=== PATIENT | female | born 1935 | race Caucasian/White ===

== ENCOUNTER 2017-02-02 14:02 | Day surgery (SDC) | payer OTHER ==
[~2017-02-02] VITALS: Ht 162.6 cm; Wt 83.0 kg
[~2017-02-02 14:02] MED LIST: ADULT LOW DOSE81 M1 PO; ALBUTEROL17 GM IH; ALEVE220 M2 PO; ALTACE1.25 MG PO; ALTACE10 MG PO; AMIODARONE HCL200 MG PO; AMITRIPTYLINE H50 MG PO; ASACOL400 MG PO; ASCORBIC ACID500 M1 PO; ASCORBIC ACID500 M3 PO; Altace PO; Ascorbic Acid,Ester- PO; B-100 COMPLEX1 EACH PO; B-12 IM; B-COMPLEX-VITA1 EACH PO; BUMEX1 MG PO; CARDIZEM CD,CA120 MG PO; CARDIZEM CD120 MG PO; CARDIZEM CD240 MG PO; CELEBREX200 MG PO; CENTRUM SILV1 TABLE1 PO; CIPRO250 MG PO; CIPROFLOXACIN250 MG PO; COLACE100 MG PO; COUMADIN,JANTOVE6 MG PO; CRESTOR40 MG PO; CYANOCOBAL1000 MCG/2 IM; Cardizem CD,Cartia X PO; Colace PO; DIASENSE MAGNE400 MG PO; DILTIAZEM 24HR240 MG PO; DITROPAN XL5 MG PO; DITROPAN5 MG PO; Ditropan PO; Ecotrin PO; Elavil PO; FERGON324 MG PO; FERROUS SULFAT325 MG PO; FOLIC ACID PO; FOLIC ACID0.4 MG PO; FOLIC ACID1 MG PO; FORTAMET500 M1 PO; FUROSEMIDE40 MG PO; Feosol PO; Folvite PO; GLUCOPHAGE500 MG PO; Glucophage PO; Glucosamine/Chondroi PO; IRON325 MG PO; JANUVIA25 MG PO; K-DUR10 MEQ PO; K-DUR20 MEQ PO; LANTUS 3 M100 UNITS1 SC; LASIX20 MG PO; LASIX40 MG PO; LISINOPRIL5 MG PO; Lasix PO; Levaquin PO; Lovenox SC; MACROBID100 MG PO; METFORMIN HCL500 M1 PO; METFORMIN HCL500 MG PO; METOPROLOL SUC100 MG PO; METOPROLOL SUCC50 MG PO; MIRALAX17 GM PO; MYCOSTATIN1 APPLICAT TP; MYRBETRIQ50 MG PO; Micro-K,K-Tab,K-Dur, PO; Mycostatin PO; NITROSTAT0.4 MG SL; NOVOLOG PE100 UNITS/ SC; Norvasc PO; OXYCODONE5 MG PO; Oscal 500 w/Vitamin PO; PANTOPRAZOLE SO40 MG PO; PLAVIX75 MG PO; POTASSIUM CHLO10 ME3 PO; POTASSIUM CHLO10 ME4 PO; PROTONIX40 MG PO; Protonix PO; RAMIPRIL2.5 MG PO; SENOKOT S,PE1 TABLET PO; STOOL SOFTENER100 M1 PO; TOPROL XL50 MG PO; TOVIAZ4 MG PO; TRADJENTA5 MG PO; TYLENOL REGULA325 MG PO; Theragran PO; Toprol XL PO; VIRT PO; VITAMIN C; VITAMIN C500 M1 PO; VITAMIN C500 MG PO; VITAMIN D1000 UNIT PO; VITAMIN D35000 UNIT PO; Vicodin,Lortab 5/500 PO; XARELTO15 MG PO; XERALTO PO; Xopenex IH
[2017-02-02 14:46] LABS: POINT-OF-CARE METER ID UU13113696
== END 2017-02-02 17:00 | disposition home or self-care (01) ==
LOC: CATH 14:02
PROVIDERS: Internal Medicine Cardiovascular Disease
DX: Z45.010 Encounter for checking and testing of cardiac pacemaker pulse generator [battery] (principal); I49.5 Sick sinus syndrome; I48.0 Paroxysmal atrial fibrillation; I44.1 Atrioventricular block, second degree; I25.10 Atherosclerotic heart disease of native coronary artery without angina pectoris; Z95.5 Presence of coronary angioplasty implant and graft; I10 Essential (primary) hypertension; E78.5 Hyperlipidemia, unspecified; E11.9 Type 2 diabetes mellitus without complications; I35.0 Nonrheumatic aortic (valve) stenosis; Z95.2 Presence of prosthetic heart valve; I27.2 Other secondary pulmonary hypertension; E78.2 Mixed hyperlipidemia; Z79.01 Long term (current) use of anticoagulants
CPT/HCPCS: 82948; C1785; J1200; J2250; J3010; S0020

== ENCOUNTER 2017-03-09 17:06 | Emergency (ER) | payer OTHER ==
[~2017-03-09] VITALS: Ht 165.1 cm; Wt 82.7 kg
[2017-03-09 19:03] LABS: HEMATOCRIT 29.6 % (36.0-46.0); MCH 30.8 PG (29.0-34.0); MCHC 31.1 G/DL (30.0-36.0); MEAN PLAT.VOLUME 12.9 uM^3 (9.5-12.4); PLATELET COUNT 203 K/uL (156-360); RBC DIS.WIDTH-CV 14.8 % (11.8-14.6); RBC DIS.WIDTH-SD 53.9 % (39-53); RED BLOOD COUNT 2.99 M/uL (3.80-5.20); WHITE BLOOD COUNT 8.4 K/uL (4.1-10.2)
[2017-03-09 19:16] LABS: CHLORIDE 107 mEq/L (99-109); POTASSIUM 4.3 mEq/L (3.7-5.4); SODIUM 140 mEq/L (136-147)
[2017-03-09 19:18] LABS: GLUCOSE 123 mg/dL (70-99)
[2017-03-09 19:19] LABS: ANION GAP 12 MEQ/L (2-14)
[2017-03-09 19:20] LABS: INTER. NORMALIZED RATIO 1.3; PROTHROMBIN TIME 13.1 (9.2-11.2); PTT 29.4 (25-32); TOTAL BILIRUBIN 0.6 mg/dL (0.0-1.0)
[2017-03-09 19:21] LABS: ALKALINE PHOSPHATASE 132 IU/L (3-129)
[2017-03-09 19:22] LABS: GFR ESTIMATE (CALCULATED) 51 mL/min/
[2017-03-09 19:23] LABS: UREA NITROGEN (BUN) 35 mg/dL (9-23)
[2017-03-09] MEDS ORDERED: OCEAN BOTH NARES (19:36)
[2017-03-09 20:03] VITALS: BP 127/69
[2017-03-10] MEDS ORDERED: CARDIZEM CD,CA240 MG PO (07:49)
[2017-03-10] MEDS ORDERED: FOLIC ACID1 MG PO (07:50)
[2017-03-10] MEDS ORDERED: CYANOCOBAL1000 MCG/2 IM (07:51)
[2017-03-10] MEDS ORDERED: CEPHALEXIN500 MG PO (07:52)
[2017-03-10] MEDS ORDERED: CARDIZEM CD120 MG PO (07:52)
== END 2017-03-09 20:04 | disposition home or self-care (01) ==
LOC: EME 17:06
PROVIDERS: Nurse Practitioner Family
PROC: 2Y41X5Z Packing of Nasal Region using Packing Material (ICD-10-PCS; principal; 2017-03-09)
DX: R04.0 Epistaxis (principal); L03.116 Cellulitis of left lower limb; D64.9 Anemia, unspecified; N28.9 Disorder of kidney and ureter, unspecified; Z95.2 Presence of prosthetic heart valve; Z79.01 Long term (current) use of anticoagulants; Z95.1 Presence of aortocoronary bypass graft; Z95.0 Presence of cardiac pacemaker; Z96.652 Presence of left artificial knee joint
CPT/HCPCS: 73590; 80053; 83605; 85027; 85610; 85730; 99281; 99284

== ENCOUNTER 2017-03-10 02:34 | Inpatient (IN) | payer OTHER ==
[2017-03-10] VITALS (7 sets, daily range): BP systolic 140–163; BP diastolic 65–70
[~2017-03-10] VITALS: Ht 165.1 cm; Wt 82.7 kg
[~2017-03-10 02:34] MED LIST changes: +OCEAN BOTH NARES
[2017-03-10 03:17] LABS: EOSINOPHIL (%) 1.9 % (0-5); EOSINOPHIL COUNT 0.2 K/uL (0-0.3); HEMATOCRIT 27.8 % (36.0-46.0); IMMATURE GRANULOCYTE (%) 0.6 % (0.0-0.7); IMMATURE GRANULOCYTE COUNT 0.1 K/uL; INSTRUMENT ABS NEUTROPHIL CT 5.6 K/uL; LYMPHOCYTE COUNT 1.1 K/uL (1.0-2.8); MCHC 30.9 G/DL (30.0-36.0); MCV 96.9 FL (83-99); MEAN PLAT.VOLUME 12.6 uM^3 (9.5-12.4); MONOCYTE (%) 12.9 % (3-12); NEUTROPHIL (%) 70.7 % (45-76); NEUTROPHIL COUNT 5.6 K/uL (1.8-6.4); PLATELET COUNT 157 K/uL (156-360); RBC DIS.WIDTH-CV 14.6 % (11.8-14.6); RBC DIS.WIDTH-SD 51.8 % (39-53); RED BLOOD COUNT 2.87 M/uL (3.80-5.20)
[2017-03-10 03:31] LABS: INTER. NORMALIZED RATIO 1.9; PTT 39.7 (25-32)
[2017-03-10 03:36] LABS: PROTHROMBIN TIME 19.4 (9.2-11.2)
[2017-03-10 04:11] LABS: ANION GAP 11 MEQ/L (2-14); CHLORIDE 109 mEq/L (99-109); GFR ESTIMATE (CALCULATED) 46 mL/min/; GLUCOSE 135 mg/dL (70-99); POTASSIUM 3.8 mEq/L (3.7-5.4); SODIUM 141 mEq/L (136-147); UREA NITROGEN (BUN) 40 mg/dL (9-23)
[2017-03-10 04:23] LABS: TROP-I INTERPRETATION NEGATIVE; TROPONIN-I 0.05 ng/mL (0.0-0.30)
[2017-03-10] MEDS ORDERED: CARDIZEM CD,CA240 MG PO (07:49)
[2017-03-10] MEDS ORDERED: FOLIC ACID1 MG PO (07:50)
[2017-03-10] MEDS ORDERED: CYANOCOBAL1000 MCG/2 IM (07:51)
[2017-03-10] MEDS ORDERED: CARDIZEM CD120 MG PO (07:52)
[2017-03-10] MEDS ORDERED: CEPHALEXIN500 MG PO (07:52)
[2017-03-10 12:18] LABS: HEMATOCRIT 27.9 % (36.0-46.0); MCH 30.4 PG (29.0-34.0); MCHC 31.9 G/DL (30.0-36.0); MCV 95.2 FL (83-99); MEAN PLAT.VOLUME 12.6 uM^3 (9.5-12.4); PLATELET COUNT 162 K/uL (156-360); RBC DIS.WIDTH-CV 15.5 % (11.8-14.6); RBC DIS.WIDTH-SD 53.7 % (39-53); RED BLOOD COUNT 2.93 M/uL (3.80-5.20); WHITE BLOOD COUNT 7.4 K/uL (4.1-10.2)
[2017-03-10 16:15] LABS: HEMATOCRIT 26.8 % (36.0-46.0); MCH 30.1 PG (29.0-34.0); MCHC 31.3 G/DL (30.0-36.0); MCV 96.1 FL (83-99); MEAN PLAT.VOLUME 12.8 uM^3 (9.5-12.4); PLATELET COUNT 137 K/uL (156-360); RBC DIS.WIDTH-CV 15.9 % (11.8-14.6); RBC DIS.WIDTH-SD 55.2 % (39-53); RED BLOOD COUNT 2.79 M/uL (3.80-5.20); WHITE BLOOD COUNT 7.9 K/uL (4.1-10.2)
[2017-03-11 00:45] LABS: HEMATOCRIT 32.5 % (36.0-46.0); MCH 30.6 PG (29.0-34.0); MCHC 32.9 G/DL (30.0-36.0); MCV 92.9 FL (83-99); MEAN PLAT.VOLUME 11.5 uM^3 (9.5-12.4); RBC DIS.WIDTH-CV 15.9 % (11.8-14.6); RBC DIS.WIDTH-SD 53.9 % (39-53); WHITE BLOOD COUNT 7.5 K/uL (4.1-10.2)
[2017-03-11 00:46] LABS: PLATELET COUNT 207 K/uL (156-360)
[2017-03-11 03:20] VITALS: BP 145/65
[2017-03-11 06:44] LABS: HEMATOCRIT 29.9 % (36.0-46.0); MCH 30.4 PG (29.0-34.0); MCHC 32.4 G/DL (30.0-36.0); MCV 93.7 FL (83-99); MEAN PLAT.VOLUME 12.1 uM^3 (9.5-12.4); PLATELET COUNT 197 K/uL (156-360); RBC DIS.WIDTH-SD 54.6 % (39-53); RED BLOOD COUNT 3.19 M/uL (3.80-5.20)
[2017-03-11 07:30] VITALS: BP 157/91
[2017-03-11 08:04] LABS: POINT-OF-CARE METER ID UU14162508
[2017-03-11 11:14] LABS: POINT-OF-CARE METER ID UU14162508
[2017-03-11 11:50] VITALS: BP 152/70
[2017-03-11 16:10] VITALS: BP 167/73
[2017-03-11 18:55] VITALS: BP 145/70
[2017-03-11 23:05] VITALS: BP 127/59
[2017-03-12 03:51] VITALS: BP 163/72
[2017-03-12 06:32] LABS: POINT-OF-CARE METER ID UU14162508
[2017-03-12 07:13] LABS: HEMATOCRIT 30.9 % (36.0-46.0); MCH 30.4 PG (29.0-34.0); MCV 94.8 FL (83-99); MEAN PLAT.VOLUME 11.9 uM^3 (9.5-12.4); PLATELET COUNT 209 K/uL (156-360); RBC DIS.WIDTH-CV 16.1 % (11.8-14.6); RBC DIS.WIDTH-SD 55.4 % (39-53); RED BLOOD COUNT 3.26 M/uL (3.80-5.20); WHITE BLOOD COUNT 7.8 K/uL (4.1-10.2)
[2017-03-12 07:47] VITALS: BP 155/87
[2017-03-12 15:08] VITALS: BP 120/58
[2017-03-12 16:52] LABS: POINT-OF-CARE METER ID UU14162508
[2017-03-12 21:26] LABS: POINT-OF-CARE METER ID UU14162508
[2017-03-13 01:10] VITALS: BP 167/74
[2017-03-13 04:11] VITALS: BP 161/72
[2017-03-13 06:20] LABS: HEMATOCRIT 30.5 % (36.0-46.0); MCH 30.1 PG (29.0-34.0); MCHC 31.8 G/DL (30.0-36.0); MCV 94.7 FL (83-99); MEAN PLAT.VOLUME 11.5 uM^3 (9.5-12.4); PLATELET COUNT 201 K/uL (156-360); RBC DIS.WIDTH-SD 54.4 % (39-53); RED BLOOD COUNT 3.22 M/uL (3.80-5.20); WHITE BLOOD COUNT 7.6 K/uL (4.1-10.2)
[2017-03-13 06:50] VITALS: BP 168/71
[2017-03-13 11:46] LABS: POINT-OF-CARE METER ID UU14162508
[2017-03-13 15:00] VITALS: BP 153/69
[2017-03-13 16:54] LABS: POINT-OF-CARE METER ID UU14162508
[2017-03-13 23:20] VITALS: BP 155/67
[2017-03-14 06:56] VITALS: BP 131/66
[2017-03-14 06:58] LABS: POINT-OF-CARE METER ID UU14162508
[2017-03-14 15:13] VITALS: BP 137/63
[2017-03-14 23:31] VITALS: BP 157/70
[2017-03-15 06:50] VITALS: BP 135/94
[2017-03-15 06:50] LABS: HEMATOCRIT 30.4 % (36.0-46.0); MCH 30.3 PG (29.0-34.0); MCHC 31.6 G/DL (30.0-36.0); MCV 95.9 FL (83-99); MEAN PLAT.VOLUME 11.8 uM^3 (9.5-12.4); PLATELET COUNT 199 K/uL (156-360); RBC DIS.WIDTH-CV 15.7 % (11.8-14.6); RBC DIS.WIDTH-SD 53.8 % (39-53); RED BLOOD COUNT 3.17 M/uL (3.80-5.20); WHITE BLOOD COUNT 8.3 K/uL (4.1-10.2)
[2017-03-15 07:14] LABS: ANION GAP 8 MEQ/L (2-14); CHLORIDE 102 MEQ/L (99-109); GFR ESTIMATE (CALCULATED) > 59 mL/min/; GLUCOSE 111 mg/dL (70-99); POTASSIUM 4.3 MEQ/L (3.7-5.4); SAMPLE HEMOLYSIS CHECK 0; SAMPLE ICTERIC CHECK 0; SAMPLE LIPEMIA CHECK 0; SODIUM 138 MEQ/L (136-147)
[2017-03-15 07:17] LABS: UREA NITROGEN (BUN) 20 mg/dL (9-23)
[2017-03-15 16:00] VITALS: BP 152/67
[2017-03-15 23:56] VITALS: BP 139/54
[2017-03-16 07:05] VITALS: BP 150/70
[2017-03-16] MEDS ORDERED: AUGMENTIN500 MG PO (13:32)
[2017-03-16] MEDS ORDERED: ENDOCET 5-3251 EACH PO (13:32)
[2017-03-16] MEDS ORDERED: PLAVIX75 MG PO (13:32)
== END 2017-03-16 15:37 | disposition home health service (06) | DRG 988 ==
LOC: EME 02:34 → 2EAST 04:35 → EDOF 04:35 → 2EAST 15:06
PROVIDERS: Emergency Medicine; Internal Medicine
DX: R04.0 Epistaxis (principal); D62 Acute posthemorrhagic anemia; J90 Pleural effusion, not elsewhere classified; L03.116 Cellulitis of left lower limb; S80.12XA Contusion of left lower leg, initial encounter; T45.515A Adverse effect of anticoagulants, initial encounter; R79.1 Abnormal coagulation profile; R53.1 Weakness; I48.0 Paroxysmal atrial fibrillation; I25.10 Atherosclerotic heart disease of native coronary artery without angina pectoris; I50.9 Heart failure, unspecified; N28.9 Disorder of kidney and ureter, unspecified; I34.0 Nonrheumatic mitral (valve) insufficiency; I27.2 Other secondary pulmonary hypertension; I45.10 Unspecified right bundle-branch block; I36.1 Nonrheumatic tricuspid (valve) insufficiency; Z96.652 Presence of left artificial knee joint; E78.5 Hyperlipidemia, unspecified; Z95.5 Presence of coronary angioplasty implant and graft; Z60.2 Problems related to living alone; Z95.2 Presence of prosthetic heart valve; Z95.0 Presence of cardiac pacemaker; Z79.01 Long term (current) use of anticoagulants; Z88.1 Allergy status to other antibiotic agents; Z82.49 Family history of ischemic heart disease and other diseases of the circulatory system; Y92.9 Unspecified place or not applicable
CPT/HCPCS: 71010; 73590; 80048; 80053; 82948; 83605; 84484; 85025; 85027; 85610; 85730; 86900; 86901; 86920; 93005; 99281; 99284; 99285; J0295; J1940; J7050; P9016

== ENCOUNTER 2018-05-01 14:50 | Inpatient (IN) | payer OTHER ==
[2018-05-01] VITALS (8 sets, daily range): BP systolic 113–136; BP diastolic 48–95
[~2018-05-01] VITALS: Ht 167.6 cm; Wt 82.6 kg
[~2018-05-01 14:50] MED LIST changes: +AUGMENTIN500 MG PO; +CARDIZEM CD,CA240 MG PO; +CEPHALEXIN500 MG PO; +ENDOCET 5-3251 EACH PO
[2018-05-01 15:46] LABS: HEMATOCRIT 23.9 % (36.0-46.0); HEMOGLOBIN 7.1 G/DL (11.9-15.5); MCH 31.7 PG (29.0-34.0); MCHC 29.7 G/DL (30.0-36.0); MCV 106.7 FL (83-99); NRBC (%) 0.3 /100 WBC (0-0); PLATELET COUNT 155 K/uL (156-360); RBC DIS.WIDTH-CV 17.2 % (11.8-14.6); RBC DIS.WIDTH-SD 65.9 % (39-53); RED BLOOD COUNT 2.24 M/uL (3.80-5.20); WHITE BLOOD COUNT 6.2 K/uL (4.1-10.2)
[2018-05-01 15:55] LABS: CHLORIDE 99 mEq/L (99-109); POTASSIUM 3.6 mEq/L (3.7-5.4); SODIUM 135 mEq/L (136-147)
[2018-05-01 15:56] LABS: GLUCOSE 199 mg/dL (70-99)
[2018-05-01 16:00] LABS: CREATININE 1.5 mg/dL (0.6-1.3); GFR ESTIMATE (CALCULATED) 35 mL/min/
[2018-05-01 16:01] LABS: UREA NITROGEN (BUN) 24 mg/dL (9-23)
[2018-05-01 16:07] LABS: TROP-I INTERPRETATION NEGATIVE; TROPONIN-I 0.04 ng/mL (0.0-0.30)
[2018-05-01 16:19] LABS: INTER. NORMALIZED RATIO 2.3
[2018-05-01] MEDS ORDERED: ROSUVASTATIN CA40 MG PO (18:42)
[2018-05-01] MEDS ORDERED: CARDIZEM CD,CA180 MG PO (18:42)
[2018-05-01] MEDS ORDERED: XARELTO15 MG PO (18:43)
[2018-05-01] MEDS ORDERED: IRON325 M1 PO (18:43)
[2018-05-01] MEDS ORDERED: METOPROLOL SUCC50 MG PO (18:43)
[2018-05-01] MEDS ORDERED: B-COMPLEX-VITA1 EACH PO (18:49)
[2018-05-02] VITALS (7 sets, daily range): BP systolic 120–147; BP diastolic 59–69
[2018-05-02 00:41] LABS: HEMATOCRIT 33.6 % (36.0-46.0); MCHC 31.3 G/DL (30.0-36.0); PLATELET COUNT 153 K/uL (156-360); RBC DIS.WIDTH-CV 20.3 % (11.8-14.6); RBC DIS.WIDTH-SD 70.5 % (39-53); WHITE BLOOD COUNT 6.2 K/uL (4.1-10.2)
[2018-05-02 00:42] LABS: HEMOGLOBIN 10.5 G/DL (11.9-15.5); MCV 99.1 FL (83-99); RED BLOOD COUNT 3.39 M/uL (3.80-5.20)
[2018-05-02 05:50] LABS: HEMATOCRIT 31.8 % (36.0-46.0); HEMOGLOBIN 9.7 G/DL (11.9-15.5); MCH 30.7 PG (29.0-34.0); MCHC 30.5 G/DL (30.0-36.0); MCV 100.6 FL (83-99); NRBC (%) 0.4 /100 WBC (0-0); PLATELET COUNT 122 K/uL (156-360); RBC DIS.WIDTH-CV 20.8 % (11.8-14.6); RBC DIS.WIDTH-SD 74.3 % (39-53); RED BLOOD COUNT 3.16 M/uL (3.80-5.20); WHITE BLOOD COUNT 5.6 K/uL (4.1-10.2)
[2018-05-02 06:53] LABS: ALBUMIN 3.2 G/DL (3.2-4.8); ALKALINE PHOSPHATASE 112 IU/L (3-129); ALT (GPT) 13 IU/L (3-49); AST (GOT) 24 IU/L (2-34); CHLORIDE 104 MEQ/L (99-109); CREATININE 1.3 MG/DL (0.6-1.3); GFR ESTIMATE (CALCULATED) 41 mL/min/; POTASSIUM 4.2 MEQ/L (3.7-5.4); SODIUM 141 MEQ/L (136-147); TOTAL BILIRUBIN 0.9 MG/DL (0.0-1.0); TOTAL PROTEIN 5.4 G/DL (6.4-8.3); UREA NITROGEN (BUN) 18 mg/dL (9-23)
[2018-05-02 06:58] LABS: GLUCOSE 106 mg/dL (70-99)
[2018-05-03 04:06] VITALS: BP 130/60
[2018-05-03 06:31] LABS: HEMATOCRIT 33.2 % (36.0-46.0); MCH 31.2 PG (29.0-34.0); MCHC 30.1 G/DL (30.0-36.0); MCV 103.4 FL (83-99); NRBC (%) 0.3 /100 WBC (0-0); PLATELET COUNT 123 K/uL (156-360); RBC DIS.WIDTH-CV 19.9 % (11.8-14.6); RBC DIS.WIDTH-SD 74.5 % (39-53); RED BLOOD COUNT 3.21 M/uL (3.80-5.20)
[2018-05-03 07:57] VITALS: BP 122/58
[2018-05-03] MEDS ORDERED: ACID CONTROL150 MG PO (11:23)
[2018-05-03 11:50] VITALS: BP 138/63
== END 2018-05-03 13:53 | disposition home or self-care (01) | DRG 379 ==
LOC: EME 14:50 → EDOF 16:51 → 2EAST 16:51 → ENRESERV 17:15 → 2EAST 21:04
PROVIDERS: Emergency Medicine; Internal Medicine
PROC: 30233N1 Transfusion of Nonautologous Red Blood Cells into Peripheral Vein, Percutaneous Approach (ICD-10-PCS; principal; 2018-05-01)
DX: K92.2 Gastrointestinal hemorrhage, unspecified (principal); D50.0 Iron deficiency anemia secondary to blood loss (chronic); I11.0 Hypertensive heart disease with heart failure; E11.9 Type 2 diabetes mellitus without complications; I25.10 Atherosclerotic heart disease of native coronary artery without angina pectoris; I48.2 Chronic atrial fibrillation; I50.9 Heart failure, unspecified; Z96.652 Presence of left artificial knee joint; K21.9 Gastro-esophageal reflux disease without esophagitis; Z79.01 Long term (current) use of anticoagulants; Z95.2 Presence of prosthetic heart valve; Z95.5 Presence of coronary angioplasty implant and graft
CPT/HCPCS: 36415; 74176; 80048; 80053; 82948; 84443; 84484; 85025; 85027; 85610; 86850; 86900; 86901; 86920; 99281; 99285; C9113; P9016